=== PATIENT | female | born 2000 | race Caucasian/White ===

== ENCOUNTER 2019-12-30 14:23 | Emergency (ER) | payer MEDICAID, SELFPAY ==
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
--- NOTE | ~2019-12-30 | XR_ITS ---
EXAMINATION: XR ribs LT 2V INDICATION: Left lower rib pain TECHNIQUE: Four views of the left ribs were obtained. COMPARISON: None. FINDINGS: No displaced rib fracture is identified. The visualized portions of the thorax are unremark able. The cardiomediastinal silhouette is normal. There is no pleural effusion or pneumothorax. IMPRESSION: 1. No displaced rib fracture identified. Reviewed, dictated and finalized at location A.
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
[2019-12-30 14:54] VITALS: BP 115/66; PULSE 72; RESP 16; TEMP 37.4; O2SAT 100
== END 2019-12-30 15:52 | disposition home or self-care (01) ==
PROVIDERS: Emergency Provider Nurse Practitioner Family
DX: S52.592A Other fractures of lower end of left radius, initial encounter for closed fracture (principal); S20.212A Contusion of left front wall of thorax, initial encounter; F17.290 Nicotine dependence, other tobacco product, uncomplicated; V49.9XXA Car occupant (driver) (passenger) injured in unspecified traffic accident, initial encounter
CPT/HCPCS: 29125; 71100; 73110; 81025; 99214; A4565; G0463

== ENCOUNTER 2022-07-18 07:55 | Outpatient (RCR) | payer OTHER, SELFPAY ==
[2022-07-16 14:21] LABS: Hematocrit 34.9 % (37.0-47.0); Hemoglobin 11.9 g/dL (12.0-15.0)
[2022-07-16 14:36] LABS: Glucose 1 Hour 82 mg/dL
[2022-07-16 15:16] LABS: HIV 1/2 Ab P24 Ag Result Negative (Negative)
[2022-07-18] MEDS: RHO(D) IMMUNE GLOBULIN 300 MCG/2 ML SYRINGE IM (11:13)
== END 2022-07-18 08:00 | disposition home or self-care (01) ==
LOC: ANHLAB 07:55
PROVIDERS: PCP Orthopaedic Surgery; Visit Provider Obstetrics & Gynecology
DX: Z11.4 Encounter for screening for human immunodeficiency virus [HIV] (principal); Z29.13 Encounter for prophylactic Rho(D) immune globulin; O36.0130 Maternal care for anti-D [Rh] antibodies, third trimester, not applicable or unspecified; Z3A.00 Weeks of gestation of pregnancy not specified
CPT/HCPCS: 36415; 85014; 85018; 85461; 86703; 86850; 86900; 86901; 90384; 96372; G0432; J2790

== ENCOUNTER 2022-09-20 20:35 | Outpatient (CLI) | payer OTHER, SELFPAY ==
[2022-09-20] VITALS (22 sets, daily range): BP systolic 125–134; BP diastolic 65–78; PULSE 67–92; O2SAT 98–99
[2022-09-20 21:26] LABS: Basophils Percent Auto 0.3 % (0.2-1.2); Eosinophils Percent Auto 0.4 % (0-4.4); Hematocrit 34.2 % (37.0-47.0); Hemoglobin 11.7 g/dL (12.0-15.0); Immature Granulocyte Absolute 0.04 K/mm3 (0.00-0.031); Immature Granulocyte Percent A 0.5 % (0-0.5); Immature Platelet Fraction Pct 15.8 % (0.9-11.2); Lymphocytes Absolute Auto 1.33 K/mm3 (0.9-3.2); Lymphocytes Percent Auto 18.3 % (18.3-44.2); Mean Corpuscular HGB Conc 34.2 g/dl (32-36); Mean Corpuscular Hemoglobin 32.6 pg (26-34); Mean Corpuscular Volume 95.3 fl (80-100); Mean Platelet Volume 13.2 fl (7.4-10.4); Monocytes Absolute Auto 0.7 K/mm3 (0.1-0.6); Monocytes Percent Auto 9.3 % (2.6-8.5); Neutrophils Absolute Auto 5.2 K/mm3 (1.3-6.7); Neutrophils Percent Auto 71.2 % (45.5-73.1); Platelet Count Result 149 k/mm3 (150-375); Red Blood Count 3.59 M/mm3 (4.2-5.4); Red Cell Distribution Width 13.4 % (11.5-14.5); White Blood Count 7.3 K/mm3 (4.5-10.0)
[2022-09-20 21:29] LABS: Appearance Urine Clear (Clear); Bacteria Urine None Seen /hpf; Bilirubin Urine Negative (Negative); Blood Urine Negative (Negative); Color Urine Yellow (Yellow); Glucose Urine UA Negative (Negative); Ketones Urine Trace mg/dL (Negative); Leukocyte Esterase Ur Negative LEU/UL (NEGATIVE); Nitrate Urine Negative (Negative); Non Pathogenic Casts 0-2; Protein Urine Trace mg/dL (Negative); RBC Urine 0-2 /hpf (0-2); Specific Grav Ur 1.021 (1.001-1.035); Squamous Epithelial Cell Urine None seen /hpf (Few); Urobilinogen Urine 0.2 mg/dL (<2.0); WBC Urine 0-5 /hpf (0-3)
[2022-09-20 21:32] LABS: Creatinine Urine 93.9 mg/dL; Total Protein Urine Random 10 mg/dL; Ur Ttl Prot Creatinine Ratio 0.11 mg/mg (0-0.20)
[2022-09-20 21:41] LABS: Add Urine Microscopic? YES
[2022-09-20 22:06] LABS: Alanine Aminotransferase 22 U/L (6-35); Albumin Level 3.5 g/dL (3.5-5.1); Alkaline Phosphatase 214 U/L (38-126); Anion Gap 6 mmol/L (8-16); Aspartate Amino Transferase 30 U/L (14-36); Bilirubin,Total 0.4 mg/dL (0.2-1.3); Blood Urea Nitrogen 12 mg/dL (7-17); Calcium 9.1 mg/dL (8.4-10.2); Carbon Dioxide 22 mmol/L (22-30); Chloride 108 mmol/L (98-107); Estimated Glomerular Filt Rate > 60; Glucose 90 mg/dL (65-110); Potassium 3.9 mmol/L (3.4-5.0); Sodium 136 mmol/L (137-145); Uric Acid 4.8 mg/dL (2.5-7.5)
== END 2022-09-20 22:22 | disposition home or self-care (01) ==
LOC: ANHOBOP 20:41 → ANHOBPP 20:41
PROVIDERS: Advanced Practice Midwife; Visit Provider Advanced Practice Midwife
DX: O13.9 Gestational [pregnancy-induced] hypertension without significant proteinuria, unspecified trimester (principal)
CPT/HCPCS: 36415; 80053; 81001; 82570; 84156; 84550; 85025; 85055; 87086; 99199

== ENCOUNTER 2022-09-26 22:01 | Inpatient (IN) | payer OTHER, SELFPAY ==
[2022-09-26 22:22] VITALS: BP 144/86; PULSE 68; TEMP 36.5
[2022-09-26 22:30] VITALS: BP 137/82; PULSE 75
[2022-09-26 22:45] VITALS: BP 138/86; PULSE 79
[2022-09-26 23:00] VITALS: BP 148/83; PULSE 72
[2022-09-26 23:06] VITALS: BMI 28.8
--- NOTE | 2022-09-26 23:07 | LDADM ---
This patient, Diana Hickey, was admitted to Labor/Delivery/Recovery 108 on 09/26/22 at 22:01. Plans for labor, pain management and were discussed with patient. Patient/family oriented to hospital policies and general routines including ID bracelet, bed and alarms, visiting hours, pain management, procedures, bathroom and other care routines, personal items, smoking policy, room service/diet and guest tray routines, infant security routines, and visiting hours. Patient/Family are encouraged to report perceived risks to care and to ask questions if they do not understand what they are told or what they should do. See OBIX for further documentation.
[2022-09-26 23:15] VITALS: BP 105/56; PULSE 84
[2022-09-26 23:30] VITALS: BP 144/82; PULSE 71
[2022-09-26 23:45] LABS: Basophils Percent Auto 0.3 % (0.2-1.2); Eosinophils Percent Auto 0.2 % (0-4.4); Hematocrit 36.3 % (37.0-47.0); Hemoglobin 12.3 g/dL (12.0-15.0); Immature Granulocyte Absolute 0.06 K/mm3 (0.00-0.031); Immature Granulocyte Percent A 0.7 % (0-0.5); Immature Platelet Fraction Pct 17.2 % (0.9-11.2); Lymphocytes Absolute Auto 1.26 K/mm3 (0.9-3.2); Mean Corpuscular HGB Conc 33.9 g/dl (32-36); Mean Corpuscular Hemoglobin 32.3 pg (26-34); Mean Corpuscular Volume 95.3 fl (80-100); Mean Platelet Volume 13.8 fl (7.4-10.4); Monocytes Absolute Auto 0.8 K/mm3 (0.1-0.6); Monocytes Percent Auto 8.6 % (2.6-8.5); Neutrophils Absolute Auto 6.8 K/mm3 (1.3-6.7); Neutrophils Percent Auto 76.2 % (45.5-73.1); Platelet Count Result 156 k/mm3 (150-375); Red Blood Count 3.81 M/mm3 (4.2-5.4); Red Cell Distribution Width 13.7 % (11.5-14.5)
[2022-09-26 23:57] LABS: Alanine Aminotransferase 20 U/L (6-35); Albumin Level 3.7 g/dL (3.5-5.1); Alkaline Phosphatase 242 U/L (38-126); Anion Gap 6 mmol/L (8-16); Aspartate Amino Transferase 27 U/L (14-36); Bilirubin,Total 0.4 mg/dL (0.2-1.3); Blood Urea Nitrogen 9 mg/dL (7-17); Calcium 9.4 mg/dL (8.4-10.2); Carbon Dioxide 23 mmol/L (22-30); Chloride 107 mmol/L (98-107); Estimated CRCL calculation 190 ml/min; Estimated Glomerular Filt Rate > 60; Glucose 78 mg/dL (65-110); Potassium 3.8 mmol/L (3.4-5.0); Sodium 136 mmol/L (137-145)
[2022-09-26] MEDS: DINOPROSTONE 10 MG VAG INSERT VAGINAL (23:59)
[2022-09-27] VITALS (123 sets, daily range): BP systolic 110–157; BP diastolic 41–136; PULSE 58–238; RESP 15–16; TEMP 36.3–38.5; O2SAT 95–100
--- NOTE | 2022-09-27 08:53 | WPDANESEPP ---
Anes - Eval Pre Procedure Procedure: Labor Pain Management Date/Time: 09/27/22 08:53 Surgeon: Colt Preop Diagnosis: Pain during labor Pre Op Diagnosis: IOL Patient Data Age: 22 Gender: F Height: 1.68 m Weight: 80.9 kg Last Vital Signs Temp 97.7 F 09/27/22 06:25 Pulse 70 09/27/22 06:24 BP 126/61 09/27/22 06:24 O2 Del Method Room Air 09/26/22 23:06 Allergies Allergy/AdvReac Type Severity Reaction Status Date / Time No Known Allergies Allergy Verified 09/06/22 12:33 Home Medications Medication Instructions Recorded Confirmed Type No Home Medications 01/12/20 09/06/22 History Laboratory Tests 09/26/22 09/26/22 09/26/22 23:18 23:18 23:18 WBC 9.0 K/mm3 K/mm3 (4.5-10.0) RBC 3.81 M/mm3 L M/mm3 (4.2-5.4) Hgb 12.3 g/dL g/dL (12.0-15.0) Hct 36.3 % L % (37.0-47.0) MCV 95.3 fl fl (80-100) MCH 32.3 pg pg (26-34) MCHC 33.9 g/dl g/dl (32-36) RDW 13.7 % % (11.5-14.5) Plt Count 156 k/mm3 k/mm3 (150-375) MPV 13.8 fl H fl (7.4-10.4) Immature Gran % (Auto) 0.7 % H % (0-0.5) Neut % (Auto) 76.2 % H % (45.5-73.1) Lymph % (Auto) 14.0 % L % (18.3-44.2) [place] % (Auto) 8.6 % H % (2.6-8.5) Eos % (Auto) 0.2 % % (0-4.4) Baso % (Auto) 0.3 % % (0.2-1.2) Lymph # (Auto) 1.26 K/mm3 K/mm3 (0.9-3.2) [place] # (Auto) 0.8 K/mm3 H K/mm3 (0.1-0.6) Eos # (Auto) 0.0 K/mm3 K/mm3 (0-0.3) Baso # (Auto) 0.0 K/mm3 K/mm3 (0.0-0.1) Abs Immat Gran (auto) 0.06 K/mm3 H K/mm3 (0.00-0.031) Absolute Neuts (auto) 6.8 K/mm3 H K/mm3 (1.3-6.7) Absolute Nucleated RBC 0.0 K/mm3 K/mm3 (0.0-0.012) Nucleated RBC % 0.0 % % (0.0-0.2) % Immature Plt Fraction 17.2 % H % (0.9-11.2) Sodium Potassium Chloride Carbon Dioxide Anion Gap BUN Creatinine Estim Creat Clear Calc Estimated GFR Glucose Calcium Total Bilirubin AST ALT Alkaline Phosphatase Total Protein Albumin RPR Pending Blood Type A Negative Antibody Screen Negative 09/26/22 23:18 WBC RBC Hgb Hct MCV MCH MCHC RDW Plt Count MPV Immature Gran % (Auto) Neut % (Auto) Lymph % (Auto) [place] % (Auto) Eos % (Auto) Baso % (Auto) Lymph # (Auto) [place] # (Auto) Eos # (Auto) Baso # (Auto) Abs Immat Gran (auto) Absolute Neuts (auto) Absolute Nucleated RBC Nucleated RBC % % Immature Plt Fraction Sodium 136 mmol/L L mmol/L (137-145) Potassium 3.8 mmol/L mmol/L (3.4-5.0) Chloride 107 mmol/L mmol/L (98-107) Carbon Dioxide 23 mmol/L mmol/L (22-30) Anion Gap 6 mmol/L L mmol/L (8-16) BUN 9 mg/dL mg/dL (7-17) Creatinine 0.40 mg/dL L mg/dL (0.7-1.0) Estim Creat Clear Calc 190 ml/min ml/min Estimated GFR > 60 (59 - ) Glucose 78 mg/dL mg/dL (65-110) Calcium 9.4 mg/dL mg/dL (8.4-10.2) Total Bilirubin 0.4 mg/dL mg/dL (0.2-1.3) AST 27 U/L U/L (14-36) ALT 20 U/L U/L (6-35) Alkaline Phosphatase 242 U/L H U/L (38-126) Total Protein 7.0 g/dL g/dL (6.3-8.2) Albumin 3.7 g/dL g/dL (3.5-5.1) RPR Blood Type Antibody Screen Patient hx anesthesia problems: none Family hx anesthesia problems: none Results Review: All pre-operative results and documents have been reviewed as part of the pre-operative evaluation. [facility] Past Medical History Medical History (Updated 09/27/22 @ 08:55 by Cherie Betancourt,
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
--- NOTE | 2022-09-27 09:26 | WPDOBADMIT ---
Obstetrics - Admit Note Admission Note: 22y/o G1 @ 38w5d here from outside facility. She presented with visual disturbances and was found to have elevated blood pressure and elevated pcr of .3. She did have elevated blood pressures on admission. Decision was made to proceed with induction of labor. Symptoms have resolved. VSS Contractions irregular FHR category 1 Cervix 1 Plan: Cervidil followed by pitocin. Epidural as desired. Anticipate record reviewed. No pertinent additions to the history and/or any subsequent changes in the physical findings that are not consistent with the expected course of the were found. Additions to the history and/or subsequent changes in the physical findings follow. None.
[2022-09-27 12:09] LABS: Rapid Plasma Reagin Non-Reactive (NonReactive)
[2022-09-27] MEDS: LACTATED RINGERS 1,000 ML 125 ML IV CONT ×2 (12:45→13:51)
[2022-09-27] MEDS: OXYTOCIN 30 UNITS/NS 500 ML 30 UNITS/500 ML BAG IV CONT (12:45)
--- NOTE | 2022-09-27 15:31 | PM.OBPNLAB ---
Pain Control Date/time seen: 09/27/22 15:31 Comments: Comfortable with epidural Pelvic Exam Comments: /-2 Arom moderate amount of clear odorless fluid Status Comments: Category 1 Assessment and Plan Comments: Proceed with induction Anticipate
[2022-09-27] MEDS: ONDANSETRON INJ 4 MG/2 ML VIAL IV PUSH (17:38)
[2022-09-27] MEDS: AMPICILLIN 2 GM/NS 100 ML 2 GM/100 ML BAG IVPB (23:31)
[2022-09-28] VITALS (53 sets, daily range): BP systolic 113–209; BP diastolic 50–177; PULSE 78–154; RESP 14–16; TEMP 36.7–37.7; O2SAT 88–100
[2022-09-28] MEDS: LACTATED RINGERS 1,000 ML 125 ML IV CONT (00:05)
[2022-09-28] MEDS: miSOPROStol 200 MCG TABLET 1000 MCG RECTAL (03:46)
[2022-09-28] MEDS: CARBOPROST TROMETHAMINE 250 MCG/ML AMPUL IM (03:47)
[2022-09-28] MEDS: LIDOCAINE HCL 1% LOCAL INJ 20 ML VIAL (03:55)
[2022-09-28] MEDS: ONDANSETRON INJ 4 MG/2 ML VIAL IV PUSH (04:10)
--- NOTE | 2022-09-28 04:12 | PM.OBPRVD ---
OB - Delivery Note Procedure Delivery date: 09/28/22 Procedure: Events: Gestational Hypertension Induction method: AROM and Per Pitocin Protocol Delivery monitor: External FHT and External Uterine Route of delivery: Episiotomy description: None Laceration Description: Perineal - 2nd Degree Delivery repair: vicryl Quantitative Blood Loss (ml): 701 Anesthesia type: Epidural Narrative: . Mother and baby in stable condition. Repair while awaiting placenta. Placenta not delivered at 20 minute mandie. Pt uncomfortable, so anesthesia called for epidural dose for possible manual removal. Anesthesia in room and placenta delivered at 29 minutes post delivery. Large gush of blood and clots with placenta. Uterus boggy. Did not firm up initially with massage. Order given for cytotec. By the time of cytotec administration EBL was 400. Uterus was firm but required massage to stay firm. Order given for hemabate. Uterus then became firm. Total QBL 701. Mother and baby in stable condition. Baby Date of : 09/28/22 Time of : 03:16 Weeks of gestation at delivery: 38 gender: Male Weight (pounds): 7 Weight (ounces): 13 presentation: vertex position: Left Occiput Anterior Placenta delivery description: Spontaneous score one minute: 8 score five minutes: 8
[2022-09-28] MEDS: OXYTOCIN 30 UNITS/NS 500 ML 30 UNITS/500 ML BAG 125 UNITS IV CONT (04:14)
[2022-09-28 04:57] LABS: Hemoglobin 11.1 g/dL (12.0-15.0)
[2022-09-28] MEDS: WITCH HAZEL 40 PADS 1 PAD TOPICAL (05:36)
[2022-09-28] MEDS: BENZOCAINE 20% AER SPR (*SP) 56 GM CAN 1 SPRAY TOPICAL (05:36)
[2022-09-28] MEDS: IBUPROFEN 600 MG TABLET PO (05:36)
--- NOTE | 2022-09-28 07:18 | OBPPTRN ---
Patient transferred to post room #280 via wheelchair. Support person present. Oriented to unit, room, information board, rooming in, admission packet and security measures. Patient verbalizes understanding.
[2022-09-28] MEDS: ACETAMINOPHEN 325 MG TABLET 650 MG PO (08:11)
[2022-09-28] MEDS: DOCUSATE SODIUM 100 MG CAPSULE PO ×2 (08:36→16:08)
[2022-09-28] MEDS: MULTIVIT/MIN/PREN/FOL AC/IRON TABLET 1 TAB PO (08:36)
[2022-09-28 10:12] LABS: Hematocrit 29.4 % (37.0-47.0)
--- NOTE | 2022-09-28 11:42 | WPDANLDPN2 ---
Anes-Prog Note L&D Date/Time: 09/28/22 11:42 Comfortable throughout: labor and delivery Neuraxial method: epidural Epidural/Spinal procedure site: clean & non-tender Neuro status: Neuro function grossly intact. Cardiovascular status: normal Respiratory status: normal Airway patency: baseline Mental status: baseline Post-Op hydration status: normal Vital Signs: Last Vital Signs Temp 98.1 F 09/28/22 07:30 Pulse 78 09/28/22 07:30 Resp 16 09/28/22 07:30 BP 122/73 09/28/22 07:30 Pulse Ox 98 09/28/22 07:30 O2 Del Method Room Air 09/28/22 07:30 Pain score (VAS): 0 I/O: Intake & Output 09/27/22 09/28/22 09/28/22 23:59 07:59 15:59 Intake Total 1000 700 500 Output Total 701 Balance 1000 -1 500 Post-procedural complaints: none Patient feedback: Patient satisfied with anesthetic care.
[2022-09-28] MEDS: RHO(D) IMMUNE GLOBULIN 300 MCG/2 ML SYRINGE IM (16:06)
[2022-09-28] MEDS: POLYSACCHARIDE IRON COMPLEX 150 MG CAPSULE PO (16:08)
[2022-09-29] VITALS (7 sets, daily range): BP systolic 111–132; BP diastolic 56–78; PULSE 62–80; RESP 16–18; TEMP 36.7; O2SAT 98–99
[2022-09-29 04:56] LABS: Hemoglobin 9.2 g/dL (12.0-15.0)
[2022-09-29] MEDS: DOCUSATE SODIUM 100 MG CAPSULE PO ×2 (08:20→16:04)
[2022-09-29] MEDS: MULTIVIT/MIN/PREN/FOL AC/IRON TABLET 1 TAB PO (08:20)
[2022-09-29] MEDS: POLYSACCHARIDE IRON COMPLEX 150 MG CAPSULE PO ×2 (08:20→16:04)
[2022-09-29] MEDS: IBUPROFEN 600 MG TABLET PO ×2 (11:50→20:41)
--- NOTE | 2022-09-29 13:17 | PM.OBPNVD ---
OB - PN: Subj Subjective Date/time seen: 09/29/22 13:17 Patient comments: no complaints baby status: doing well OB - PN: Obj Data Labs 09/29/22 04:02 09/26/22 23:18 Labs: Laboratory Results - last 24 hr 09/28/22 09/29/22 10:04 04:02 Hgb 9.2 L Hct 28.0 L Blood Type A Negative Antibody Screen Negative Doses of RhIg Required 1 OB - PN A/P Plan day: 1 Plan: routine care Time Spent With Patient Time: Total time spent is greater than 50% in coordination of care (as documented) at patient's floor/unit and/or counseling patient: Time with patient: less than 15 minutes Review of Systems Review of Systems: All systems reviewed & are unremarkable except as noted in HPI and below Exam Narrative: Fundus firm and vaginal flow controlled. No lower ext redness, warmth, or edema. Negative homans. Denies h/a, v/d or e/p. Reflexes normal. Const: General: comfortable Chest: Breast/axilla inspection: normal inspection of the breasts Resp: Effort & Inspection: normal respiratory effort Cardio: Rate: regular rate GI: GI Palp: Yes Soft to palpation Psych: Appearance: grossly normal Affect: normal affect Attitude: cooperative Thought content: Yes Normal thought content present Judgement: Good judgement present (Psych)
[2022-09-30 04:41] VITALS: BP 133/85
[2022-09-30 07:41] VITALS: BP 132/86; PULSE 65; RESP 16; TEMP 36.7; O2SAT 100
[2022-09-30] MEDS: POLYSACCHARIDE IRON COMPLEX 150 MG CAPSULE PO (07:41)
[2022-09-30] MEDS: WITCH HAZEL 40 PADS 1 PAD TOPICAL (07:41)
[2022-09-30] MEDS: DOCUSATE SODIUM 100 MG CAPSULE PO (07:41)
[2022-09-30] MEDS: IBUPROFEN 600 MG TABLET PO (07:46)
--- NOTE | 2022-09-30 07:47 | PM.OBPNVD ---
OB - PN: Subj Subjective Date/time seen: 09/30/22 07:47 Patient comments: no complaints baby status: doing well OB - PN: Obj Data Labs 09/29/22 04:02 09/26/22 23:18 OB - PN A/P Plan day: 2 Plan: routine care and discharge home (F/U in 1 week for bp check) Time Spent With Patient Time: Total time spent is greater than 50% in coordination of care (as documented) at patient's floor/unit and/or counseling patient: Time with patient: less than 15 minutes Review of Systems Review of Systems: All systems reviewed & are unremarkable except as noted in HPI and below Exam Narrative: Fundus firm and vaginal flow controlled. No lower ext redness, warmth, or edema. Negative homans. Denies h/a, v/d or e/p. Reflexes normal. Const: General: comfortable Chest: Breast/axilla inspection: normal inspection of the breasts Resp: Effort & Inspection: normal respiratory effort Cardio: Rate: regular rate GI: GI Palp: Yes Soft to palpation Psych: Appearance: grossly normal Affect: normal affect Attitude: cooperative Thought content: Yes Normal thought content present Judgement: Good judgement present (Psych)
--- NOTE | 2022-09-30 07:49 | PM.OBDSVD ---
DS: Admitting Diagnosis Discharge Date 09/30/22 Admitting Diagnosis Induction of labor DS: Discharge Diagnosis Discharge Diagnosis (1) Vaginal delivery: Code(s): O80 - Encounter for full-term uncomplicated delivery Status: Acute OB - DS: Summary OB Procedures : None OB Procedures Intrapartum: Spontaneous Vag Delivery OB Procedures: : None Time Spent with Patient Time attestation: Total time spent providing and/or coordinating discharge services: DS: Data Data Completed and Pending Pending studies at discharge: Pending at discharge 09/28/22 03:45 Surgical [PTH] Routine Discharge Plan Discharge Attending physician on discharge: Renetta Britton Discharging Clinician: Renetta Britton Patient Disposition: Home, Self-Care Activity: pelvic rest Diet: as tolerated Patient Instructions: Antibiotic Form, Electronic [employer] (GEN) Stand Alone Forms: General Discharge Information Follow-up/Referrals: Renetta Britton, CNM [Certified Nurse Showroom Sales Assistant] - Discharge Medications: New polysaccharide iron complex 150 mg iron Capsule 150 mg PO DAILY Qty: 30 0RF No Action No Home Medications Date of admission: 09/26/22 22:01 Primary Care Provider: PHYSICIAN,TOOL MAKER BENCH Admitting Provider: Abigail Gregory Attending physician on admission: Abigail Gregory Condition: Stable
--- NOTE | 2022-09-30 10:28 | PC.NURSE ---
0700 Patient viewed the discharge video Mother & Baby Care, The First Two Weeks . Patient was given the opportunity and encouraged to ask questions. Patient verbalized understanding of information shared and has been given the mother/baby guide for home reference.
[2022-10-02 11:43] VITALS: BP 147/86; PULSE 65; RESP 16; TEMP 36.5; O2SAT 100
== END 2022-09-30 12:34 | disposition home or self-care (01) | DRG 560 ==
LOC: ANHLDR 09-27 11:05 → ANHOB2 09-28 07:19
PROVIDERS: Advanced Practice Midwife; Admitting Provider Obstetrics & Gynecology; Visit Provider Obstetrics & Gynecology
DX: O14.04 Mild to moderate pre-eclampsia, complicating childbirth (principal); O75.2 Pyrexia during labor, not elsewhere classified; O70.1 Second degree perineal laceration during delivery; Z3A.38 38 weeks gestation of pregnancy; Z37.0 Single live birth; Z87.891 Personal history of nicotine dependence
CPT/HCPCS: 36415; 80053; 85014; 85018; 85025; 85055; 85461; 86592; 86850; 86900; 86901; 88307; 90384; A9270; J0131; J0290; J2405; J2590; J2790; J2795; J7120

== ENCOUNTER 2024-04-22 13:47 | Outpatient (CLI) | payer OTHER, SELFPAY ==
[2024-04-22 15:08] LABS: Beta HCG Quantitative < 2.39 mIU/ML
== END 2024-04-22 13:48 | disposition home or self-care (01) ==
LOC: ANHLAB 13:51
PROVIDERS: Visit Provider Obstetrics & Gynecology
DX: Z32.01 Encounter for pregnancy test, result positive (principal)
CPT/HCPCS: 36415; 84702